=== PATIENT | male | born 1970 | race Caucasian/White ===

== ENCOUNTER → 2022-06-19 | Outpatient (CLI) | payer OTHER | LOC: EMI 16:10 | DX: M50.122 Cervical disc disorder at C5-C6 level with radiculopathy (principal) | CPT/HCPCS: 72141 ==

== ENCOUNTER → 2022-07-10 | Outpatient (CLI) | payer OTHER | LOC: KOH-I 15:46 | DX: M50.123 Cervical disc disorder at C6-C7 level with radiculopathy (principal) | CPT/HCPCS: 72125 ==